=== PATIENT | male | born 1980 ===

== ENCOUNTER 2018-10-30 22:17 | Emergency (ER) | payer OTHER ==
[~2018-10-30 22:17] MED LIST: ISOVUE-370 76%-LOCM 1 ML ONE
[2018-10-30 22:40] LABS: #Basophils 0.1 thou/uL (0.0-0.2); #Lymphocytes 1.6 thou/uL (1.20-3.40); #Monocytes 1.1 thou/uL (0.11-0.59); #Neutrophils 11.8 thou/uL (1.40-6.50); %Basophils 0.3 % (0.0-1.0); %Eosinophils 0.2 % (0.0-10.0); %Lymphocytes 10.9 % (21.0-51.0); %Monocytes 7.7 % (0.0-10.0); %Neutrophils 80.8 % (42.0-75.0); Hemoglobin 15.4 g/dL (14.0-18.0); Mean Corpuscular Hemoglobin 28.4 pg (27.0-31.0); Mean Corpuscular Volume 85.9 fL (78.0-98.0); Mean Platelet Volume 7.4 fL (7.4-10.4); Platelet Count 302 thou/uL (130-400); RBC Distribution Width 13.1 % (11.5-14.5); Red Blood Cell (RBC) Count 5.42 mill/uL (4.70-6.10); White Blood Cell (WBC) Count 14.6 thou/uL (4.8-10.8)
[2018-10-30 22:44] LABS: Bilirubin Negative (Negative); Blood, Urine Moderate (Negative); Clarity CLEAR (Clear); Glucose, Urine (Dipstick) Negative (Negative); Leukocyte Negative (Negative); Nitrite Negative (Negative); Protein, Urine (Dipstick) Negative (Neg-Trace); Urobilinogen 0.2 mg/dL (0.2-1.0)
[2018-10-30 22:48] LABS: Bacteria/HPF None Seen HPF (None Seen); Hyaline Casts/LPF 0-3 HYALINE CAST LPF (0-3 Hyaline); Pathc Cast-AUWi Flag 0.54 (0-2.49); RBC/HPF GREATER THAN 50-TNTC HPF (0-3); Squamous Epithelial 0-3 HPF (0-3); WBC/HPF 0-3 HPF (0-3)
[2018-10-30 23:00] LABS: ALT (SGPT) 30 U/L (8-55); AST (SGOT) 22 U/L (5-34); Albumin 4.5 g/dL (3.5-5.0); Alkaline Phosphatase 68 U/L (40-150); Anion Gap 12 mmol/L (10-20); BUN (Urea Nitrogen) 14 mg/dL (8.9-20.6); Bilirubin, Total 1.6 mg/dL (0.2-1.2); Calc. Creatinine Clearance 0 mL/min (70-130); Calcium 10.5 mg/dL (7.8-10.44); Carbon Dioxide 27 mmol/L (22-29); Chloride 104 mmol/L (98-107); Estimated GFR-MDRD 46; Globulin 2.9 g/dL (2.4-3.5); Glucose 117 mg/dL (70-105); Lipase 15 U/L (8-78); Potassium 4.3 mmol/L (3.5-5.1); Protein, Total 7.4 g/dL (6.0-8.3); Sodium 139 mmol/L (136-145)
[2018-10-31] MEDS ORDERED: Morphine 4 MG/ML VIAL ONE (01:38)
--- NOTE | 2018-10-31 07:33 | CT ---
PRELIMINARY REPORT/[facility]/EMERGENCY AFTER HOURS PROCEDURE: EXAM: CT Abdomen and Pelvis With Contrast EXAM DATE/TIME: 10/31/2018 12:37 AM CLINICAL HISTORY: 38 years old, male; Pain; Abdominal pain; Acute; Patient HX: 38 y/o m with no pmhx presents due to abdominal pain that is in the r side and rlq that started at 10: 00 this am and has been associated w ith n/v. He has had two episodes of emesis. He reports the pain is relieved with drinking lots of fluids and with movement. It is worse when he is sitting still. He denies any hematuria, hematochezia. He has felt feverish today, but did not check his temperature TECHNIQUE: Imaging protocol: Axial computed tomography images of the abdomen and pelvis with intravenous contrast. Coronal reformatted images were created and reviewed. COMPARISON: No relevant prior studies available. FINDINGS: Lower thorax: No consolidations. ABDOMEN: Liver: No mass. Gallbladder and bile ducts: Tiny gallstones in an otherwise unremarkable gallbladder. No ductal dilation. Pancreas: No mass or ductal dilation. Spleen: No mass. Adrenals: No mass. Kidneys and ureters: There is a 4 mm stone at the right ureterovesicular junction resulting in minimal hydroureteronephrosis, mild delayed nephrogram, and perinephric and periureteral fat stranding. Normal appearance of the left kidney. Punctate stone in the inferior pole of the right kid jatin. Stomach and bowel: No obstruction or mucosal thickening. Appendix: Normal appendix. PELVIS: Bladder: Normal. Reproductive: Normal. ABDOMEN and PELVIS: Intraperitoneal space: No free air or free fluid. Bones/joints: No suspicious bone lesions. Soft tissues: No acute findings. Vasculature: No abdominal aortic aneurysm. Lymph nodes: No lymphadenopathy. IMPRESSION: There is a 4 mm stone at the right ureterovesicular junction resulting in minimal hydroureteronephrosis, mild delayed nephrogram, and perinephric and periureteral fat stranding. Thank you for allowing us to participate in the care of your patient. Dictated and Authenticated by: Varsha Landaverde MD 10/31/2018 1:01 AM Central Time ([place] & [place]) FINAL REPORT CT ABDOMEN AND PELVIS WITH IV AND ORAL CONTRAST PERFORMED ON AN EMERGENCY BASIS: DATE: 10/31/18 TIME: 0039 HOURS HISTORY: Right lower quadrant pain. FINDINGS: I agree with the preliminary report by Dr. Landaverde from [facility]. Partial obstruction at a 4 mm right ureterovesicular junction calculus. Cholelithiasis also apparent. Code QA.. Transcribed Date/Time: 10/31/2018 8:02 AM
== END 2018-10-31 02:31 | disposition home or self-care (01) ==
LOC: ERS 22:17
DX: N13.2 Hydronephrosis with renal and ureteral calculous obstruction (principal)
CPT/HCPCS: 36415; 74177; 80053; 81003; 81015; 83690; 85025; 96361; 96374; J2270; Q9966